=== PATIENT | female | born 1940 | race Caucasian/White ===

== ENCOUNTER → 2016-04-05 | Outpatient (CLI) | payer MEDICARE, BC, OTHER ==
[~2016-04-05] MED LIST: ISOVUE-370 76% 100ML VIAL (Q9967) As Ordered ONE
--- NOTE | 2016-04-05 21:04 | REP ---
CT ANGIO NECK: HISTORY: Carotid stenosis. CONTRAST: Isovue-370, 75 mL There is mild stenosis of 15% of the right internal carotid artery at its origin. There is mild stenosis of 15% of the right external carotid artery at its origin. There is mild stenosis of 20% of the left internal carotid artery at its origin. There is moderate stenosis of 30% of the left external carotid artery at its origin. Calcified atherosclerotic plaques are present in the cavernous internal carotid arteries. There is at least mild stenosis of the cavernous internal carotid artery. Calcified atherosclerotic plaques are present at the origins of the left subclavian and right subclavian arteries. There is no significant stenosis. The vertebral arteries are patent. The right vertebral artery is very hypoplastic. The left vertebral artery is dominant. IMPRESSION: 1. Mild stenosis of 15% of the right internal carotid artery at its origin. 2. Mild stenosis of 20% of the left internal carotid artery at its origin. Unreviewed
== END ==
LOC: M RAD 17:37
PROVIDERS: ATTEND Internal Medicine Cardiovascular Disease
DX: I77.1 Stricture of artery (principal)
CPT/HCPCS: 70498; Q9967

== ENCOUNTER → 2016-05-01 | Outpatient (CLI) | payer MEDICARE, BC, OTHER ==
--- NOTE | 2016-05-01 15:20 | REP ---
Clinical: Pain. Technique: AP, lateral, bilateral oblique and sunrise views of the left knee. Findings: Advanced tricompartmental osteoarthritic degenerative changes are appreciated. Findings include osteophytosis, subchondral sclerosis/heterogeneity and joint space narrowing as well as subtle chondrocalcinosis. No acute fracture or dislocation. Impression: Advanced tricompartmental osteoarthritic degenerative changes. Signed by Jadiel Goins MD 05/01/2016 03:11 P
== END ==
LOC: M WUC 14:40
PROVIDERS: ATTEND Nurse Practitioner Family
DX: M17.12 Unilateral primary osteoarthritis, left knee (principal)

== ENCOUNTER → 2016-06-25 | Outpatient (CLI) | payer MEDICARE, BC, OTHER ==
--- NOTE | 2016-06-25 08:49 | REP ---
URINARY TRACT SONOGRAPHY WITH BILATERAL RENAL DOPPLER ASSESSMENT : HISTORY: Chronic kidney disease stage III. FINDINGS: Scanning at the level of the urinary bladder shows incomplete bladder filling. Renal cortical echogenicity pattern is slightly increased essentially isoechoic with liver and spleen consistent with some degree of chronic medical renal disease. There is no evidence of hydronephrosis cyst or mass on either side. The kidneys are small bilaterally. Right renal dimensions are 8.8 x 4.4 x 4.1 cm. Left kidney measures 8.9 x 3.7 x 4.8 cm. RENAL DOPPLER FLOW ASSESSMENT: Peak systolic flow velocity in the abdominal aorta at the level of the main renal arteries is normal at 170.8 cm/s. Peak systolic flow velocity in the left main renal artery is 210 cm/s and that in the right main renal artery is recorded at 140 cm/s. Renal to aortic flow velocity ratios are therefore normal at 0.8 on the right and 1.2 on the left. Resistive indices and acceleration times are measured in the upper, mid and lower pole intralobar arteries bilaterally. Resistive indices are at the upper range of normal. Acceleration times are normal. IMPRESSION: 1. Bilaterally small somewhat atrophic kidneys. No hydronephrosis. 2. No renal Doppler evidence to suggest renal artery stenosis. Signed by Ang Weaver MD 06/25/2016 03:36 P
[2016-06-25 09:03] LABS: MEAN CORPUSCULAR HEMOGLOBIN 28.5 pg (27.0-33.0); MEAN CORPUSCULAR HGB CONC 33.1 g/dl (32.0-36.5); RED CELL DISTRIBUTION WIDTH 12.7 % (11.5-14.5); WHITE BLOOD COUNT 8.2 K/mm3 (4.0-10.0)
[2016-06-25 09:14] LABS: ALBUMIN 3.8 GM/DL (3.2-5.2); ANION GAP 8 MEQ/L (8-16); BLOOD UREA NITROGEN 15 MG/DL (7-18); CALCIUM LEVEL 9.3 MG/DL (8.8-10.2); CARBON DIOXIDE LEVEL 28 MEQ/L (21-32); CHLORIDE LEVEL 107 MEQ/L (98-107); CREATININE FOR GFR 0.95 MG/DL (0.55-1.02); GLOMERULAR FILTRATION RATE > 60.0 (>39); GLUCOSE, FASTING 101 MG/DL (83-110); PHOSPHORUS LEVEL 2.9 MG/DL (2.5-4.9); POTASSIUM SERUM 4.7 MEQ/L (3.5-5.1); SODIUM LEVEL 143 MEQ/L (136-145)
== END ==
LOC: M RAD 07:31
PROVIDERS: ATTEND Internal Medicine Nephrology
DX: N18.3 Chronic kidney disease, stage 3 (moderate) (principal); I12.9 Hypertensive chronic kidney disease with stage 1 through stage 4 chronic kidney disease, or unspecified chronic kidney disease; N25.81 Secondary hyperparathyroidism of renal origin

== ENCOUNTER → 2016-08-14 | Outpatient (REF) | payer MEDICARE, BC, OTHER ==
[2016-08-23 14:15] LABS: ALDOSTERONE 4.9 ng/dL (0.0-30.0)
== END ==
LOC: M LAB REF 13:07
PROVIDERS: ATTEND Internal Medicine Nephrology
DX: I15.0 Renovascular hypertension (principal)

== ENCOUNTER → 2016-09-04 | Outpatient (CLI) | payer MEDICARE, BC, OTHER ==
[2016-09-04 12:49] LABS: BASO # 0.1 K/mm3 (0.0-0.2); EOS # 0.4 K/mm3 (0.0-0.50); EOS % 4.9 % (0.0-3.0); LARGE UNSTAINED CELL # 0.2 K/mm3 (0.0-0.4); LARGE UNSTAINED CELL % 2.1 % (0.0-4.0); LYMPH # 2.1 K/mm3 (1.5-4.5); LYMPH % 23.9 % (24.0-44.0); MEAN CORPUSCULAR HEMOGLOBIN 28.8 pg (27.0-33.0); MEAN CORPUSCULAR HGB CONC 33.1 g/dl (32.0-36.5); MONO # 0.5 K/mm3 (0.0-0.8); MONO % 5.9 % (0.0-5.0); NEUTROPHILS # 5.3 K/mm3 (1.8-7.7); NEUTROPHILS % 62.1 % (36.0-66.0); PLATELET COUNT, AUTOMATED 321 k/mm3 (150-450); RED CELL DISTRIBUTION WIDTH 13.1 % (11.5-14.5); WHITE BLOOD COUNT 8.6 K/mm3 (4.0-10.0)
[2016-09-04 13:14] LABS: ALBUMIN 3.7 GM/DL (3.2-5.2); CALCIUM LEVEL 9.7 MG/DL (8.8-10.2); CREATININE FOR GFR 1.24 MG/DL (0.55-1.02); GLOMERULAR FILTRATION RATE 44.7 (>39); MAGNESIUM LEVEL 2.5 MG/DL (1.8-2.4); PHOSPHORUS LEVEL 2.6 MG/DL (2.5-4.9); POTASSIUM SERUM 4.3 MEQ/L (3.5-5.1); URIC ACID 6.9 MG/DL (2.6-6.0)
--- NOTE | 2016-09-04 13:39 | REP ---
MRI ABDOMEN WITHOUT CONTRAST: HISTORY: Attention kidneys. Resistant hypertension. TECHNIQUE: Axial and coronal T1- and T2-weighted scans include TRUE FISP, turbo spin-echo, spin-echo, 2D gradient echo, and in-and-out of phase images. FINDINGS: There is no evidence of hydronephrosis on either side. No intrarenal mass is seen. No perirenal or pararenal fluid collection is seen on either side. Right kidney measures approximately 8.9 cm in length and the left 9.3 cm. There is a 0.7 cm cyst in the left lobe of the liver. No other hepatic lesion is seen. No filling defect is noted in the gallbladder. No splenic lesion is seen. There is a small accessory splenule inferior to the spleen. No pancreatic abnormality is seen. No periaortic adenopathy or mass is seen. IMPRESSION: No significant renal or perirenal abnormality seen. Signed by Ang Weaver MD 09/04/2016 03:23 P
== END ==
LOC: M RAD 10:57 → M LAB 10:57
PROVIDERS: ATTEND Internal Medicine Nephrology
DX: N17.9 Acute kidney failure, unspecified (principal); N18.1 Chronic kidney disease, stage 1; I15.8 Other secondary hypertension

== ENCOUNTER → 2017-03-24 | Outpatient (CLI) | payer MEDICARE, BC, OTHER ==
[2017-03-24 10:46] LABS: HEMATOCRIT 34.5 % (36.0-47.0); HEMOGLOBIN 11.3 g/dl (12.0-16.0); MEAN CORPUSCULAR HEMOGLOBIN 28.7 pg (27.0-33.0); MEAN CORPUSCULAR HGB CONC 32.8 g/dl (32.0-36.5); MEAN CORPUSCULAR VOLUME 87.6 fl (80.0-96.0); PLATELET COUNT, AUTOMATED 267 10^3/uL (150-450); RED BLOOD COUNT 3.94 10^6/uL (4.00-5.40); RED CELL DISTRIBUTION WIDTH 13.7 % (11.5-14.5); WHITE BLOOD COUNT 6.5 10^3/uL (4.0-10.0)
[2017-03-24 11:14] LABS: ALBUMIN 3.8 GM/DL (3.2-5.2); ALBUMIN/GLOBULIN RATIO 0.93 (1.00-1.93); ALKALINE PHOSPHATASE 71 U/L (45-117); ALT/SGPT 17 U/L (12-78); ANION GAP 3 MEQ/L (8-16); AST/SGOT 17 U/L (7-37); BILIRUBIN,TOTAL 0.4 MG/DL (0.2-1.0); BLOOD UREA NITROGEN 21 MG/DL (7-18); CALCIUM LEVEL 9.7 MG/DL (8.8-10.2); CARBON DIOXIDE LEVEL 28 MEQ/L (21-32); CHLORIDE LEVEL 113 MEQ/L (98-107); CHOLESTEROL LEVEL 228 MG/DL (<200); CHOLESTEROL RISK RATIO 3.257 (<5); GLOMERULAR FILTRATION RATE 46.3 (>39); GLUCOSE, FASTING 106 MG/DL (83-110); HDL CHOLESTEROL 70 MG/DL (>40); LDL CHOLESTEROL 133.8 MG/DL (<100); NON-HDL-C 158 MG/DL; POTASSIUM SERUM 4.5 MEQ/L (3.5-5.1); SODIUM LEVEL 144 MEQ/L (136-145); TOTAL PROTEIN 7.9 GM/DL (6.4-8.2); TRIGLYCERIDES LEVEL 121 MG/DL (<150)
== END ==
LOC: M LAB 10:20
DX: E78.00 Pure hypercholesterolemia, unspecified (principal)
CPT/HCPCS: 80053

== ENCOUNTER → 2017-04-21 | Outpatient (REF) | payer MEDICARE, BC, OTHER ==
[2017-04-22 14:37] LABS: FOLATE 23.8 NG/ML; VITAMIN B12 LEVEL 958 PG/ML
[2017-04-22 14:39] LABS: FERRITIN 83 NG/ML (8-252); IRON (FE) 62 UG/DL (50-170); PERCENT SATURATION 21.8 % (13.2-45.0); TOTAL IRON BINDING CAPACITY 284 UG/DL (250-450)
== END ==
LOC: M LAB REF 04-22 14:01
DX: D64.9 Anemia, unspecified (principal)
CPT/HCPCS: 82746

== ENCOUNTER → 2017-06-30 | Outpatient (CLI) | payer MEDICARE, BC, OTHER ==
[2017-06-30 11:10] LABS: HEMATOCRIT 34.3 % (36.0-47.0); HEMOGLOBIN 11.4 g/dl (12.0-15.5); MEAN CORPUSCULAR HEMOGLOBIN 28.7 pg (27.0-33.0); MEAN CORPUSCULAR HGB CONC 33.2 g/dl (32.0-36.5); MEAN CORPUSCULAR VOLUME 86.4 fl (80.0-96.0); PLATELET COUNT, AUTOMATED 274 10^3/uL (150-450); RED BLOOD COUNT 3.97 10^6/uL (4.00-5.40); RED CELL DISTRIBUTION WIDTH 13.4 % (11.5-14.5); WHITE BLOOD COUNT 8.1 10^3/uL (4.0-10.0)
[2017-06-30 11:36] LABS: ALBUMIN 3.8 GM/DL (3.2-5.2); ALBUMIN/GLOBULIN RATIO 0.81 (1.00-1.93); ALKALINE PHOSPHATASE 80 U/L (45-117); ALT/SGPT 21 U/L (12-78); ANION GAP 4 MEQ/L (8-16); AST/SGOT 25 U/L (7-37); BILIRUBIN,TOTAL 0.4 MG/DL (0.2-1.0); BLOOD UREA NITROGEN 24 MG/DL (7-18); CALCIUM LEVEL 9.3 MG/DL (8.8-10.2); CARBON DIOXIDE LEVEL 27 MEQ/L (21-32); CHLORIDE LEVEL 110 MEQ/L (98-107); CHOLESTEROL LEVEL 211 MG/DL (<200); CHOLESTEROL RISK RATIO 3.149 (<5); CPK CREATINE PHOSPHOKINASE 57 U/L (26-192); CREATININE FOR GFR 1.27 MG/DL (0.55-1.30); GLOMERULAR FILTRATION RATE 43.3 (>39); GLUCOSE, FASTING 91 MG/DL (70-100); HDL CHOLESTEROL 67 MG/DL (>40); LDL CHOLESTEROL 113.2 MG/DL (<100); NON-HDL-C 144 MG/DL; POTASSIUM SERUM 4.6 MEQ/L (3.5-5.1); SODIUM LEVEL 141 MEQ/L (136-145); TOTAL PROTEIN 8.5 GM/DL (6.4-8.2); TRIGLYCERIDES LEVEL 154 MG/DL (<150)
== END ==
LOC: M LAB 10:16
DX: I10 Essential (primary) hypertension (principal); E78.00 Pure hypercholesterolemia, unspecified
CPT/HCPCS: 82550

== ENCOUNTER → 2017-10-13 | Outpatient (CLI) | payer MEDICARE, BC, OTHER ==
[2017-10-13 09:06] LABS: HEMATOCRIT 33.1 % (36.0-47.0); HEMOGLOBIN 10.8 g/dl (12.0-15.5); MEAN CORPUSCULAR HEMOGLOBIN 29.1 pg (27.0-33.0); MEAN CORPUSCULAR HGB CONC 32.6 g/dl (32.0-36.5); MEAN CORPUSCULAR VOLUME 89.2 fl (80.0-96.0); PLATELET COUNT, AUTOMATED 267 10^3/uL (150-450); RED BLOOD COUNT 3.71 10^6/uL (4.00-5.40); RED CELL DISTRIBUTION WIDTH 13.5 % (11.5-14.5); WHITE BLOOD COUNT 6.4 10^3/uL (4.0-10.0)
[2017-10-13 09:24] LABS: ALBUMIN 3.5 GM/DL (3.2-5.2); ALBUMIN/GLOBULIN RATIO 0.83 (1.00-1.93); ALKALINE PHOSPHATASE 70 U/L (45-117); ALT/SGPT 37 U/L (12-78); ANION GAP 8 MEQ/L (8-16); AST/SGOT 26 U/L (7-37); BILIRUBIN,TOTAL 0.4 MG/DL (0.2-1.0); BLOOD UREA NITROGEN 27 MG/DL (7-18); CALCIUM LEVEL 9.2 MG/DL (8.8-10.2); CARBON DIOXIDE LEVEL 24 MEQ/L (21-32); CHLORIDE LEVEL 114 MEQ/L (98-107); CHOLESTEROL LEVEL 196 MG/DL (<200); CHOLESTEROL RISK RATIO 3.161 (<5); CPK CREATINE PHOSPHOKINASE 41 U/L (26-192); CREATININE FOR GFR 1.34 MG/DL (0.55-1.30); GLOMERULAR FILTRATION RATE 40.7 (>39); GLUCOSE, FASTING 99 MG/DL (70-100); HDL CHOLESTEROL 62 MG/DL (>40); NON-HDL-C 134 MG/DL; POTASSIUM SERUM 4.6 MEQ/L (3.5-5.1); SODIUM LEVEL 146 MEQ/L (136-145); TOTAL PROTEIN 7.7 GM/DL (6.4-8.2); TRIGLYCERIDES LEVEL 110 MG/DL (<150)
[2017-10-13 09:53] LABS: TOTAL 25(OH) VITAMIN D 23.9 NG/ML (30.0-100.0)
== END ==
LOC: M LAB 08:27
DX: I10 Essential (primary) hypertension (principal); E78.00 Pure hypercholesterolemia, unspecified; E55.9 Vitamin D deficiency, unspecified
CPT/HCPCS: 82550

== ENCOUNTER → 2018-09-18 | Outpatient (CLI) | payer MEDICARE, BC, OTHER ==
[2018-09-18 10:17] LABS: BASO # 0.1 10^3/uL (0.0-0.2); BASO % 1.4 % (0.0-1.0); EOS # 0.9 10^3/uL (0.0-0.50); EOS % 10.6 % (0.0-3.0); HEMATOCRIT 34.3 % (36.0-47.0); HEMOGLOBIN 11.2 g/dl (12.0-15.5); LYMPH # 2.3 10^3/uL (1.5-4.5); LYMPH % 27.9 % (24.0-44.0); MEAN CORPUSCULAR HEMOGLOBIN 28.4 pg (27.0-33.0); MEAN CORPUSCULAR HGB CONC 32.7 g/dl (32.0-36.5); MEAN CORPUSCULAR VOLUME 87.1 fl (80.0-96.0); MONO # 0.7 10^3/uL (0.0-0.8); MONO % 8.9 % (0.0-5.0); NEUTROPHILS # 4.2 10^3/uL (1.8-7.7); NEUTROPHILS % 51.1 % (36.0-66.0); PLATELET COUNT, AUTOMATED 312 10^3/uL (150-450); RED BLOOD COUNT 3.94 10^6/uL (4.00-5.40); WHITE BLOOD COUNT 8.1 10^3/uL (4.0-10.0)
[2018-09-18 10:51] LABS: ALBUMIN 3.6 GM/DL (3.2-5.2); BILIRUBIN,TOTAL 0.4 MG/DL (0.2-1.0); CALCIUM LEVEL 9.6 MG/DL (8.8-10.2); CHOLESTEROL RISK RATIO 3.4 (<5); CREATININE FOR GFR 1.31 MG/DL (0.55-1.30); FREE T4 1.09 NG/DL (0.76-1.46); GLOMERULAR FILTRATION RATE 41.7 (>39); POTASSIUM SERUM 4.7 MEQ/L (3.5-5.1); THYROID STIMULATING HORMONE 1.21 uIU/ML (0.358-3.740); TOTAL PROTEIN 8.2 GM/DL (6.4-8.2)
[2018-09-18 11:23] LABS: TOTAL 25(OH) VITAMIN D 26.6 NG/ML (30.0-100.0)
== END ==
LOC: M LAB 09:39
PROVIDERS: ATTEND Physician Assistant Medical
DX: R53.83 Other fatigue (principal); I10 Essential (primary) hypertension; E78.2 Mixed hyperlipidemia; E55.9 Vitamin D deficiency, unspecified

== ENCOUNTER → 2020-09-06 | Outpatient (CLI) | payer MEDICARE, BC, OTHER ==
[2020-09-06 10:33] LABS: BASO # 0.1 10^3/uL (0.0-0.2); BASO % 1.1 % (0.0-1.0); EOS # 0.3 10^3/uL (0.0-0.5); EOS % 3.8 % (0.0-3.0); HEMATOCRIT 34.2 % (36.0-47.0); HEMOGLOBIN 10.8 g/dl (12.0-15.5); LYMPH # 1.5 10^3/uL (1.5-5.0); MEAN CORPUSCULAR HEMOGLOBIN 28.9 pg (27.0-33.0); MEAN CORPUSCULAR HGB CONC 31.6 g/dl (32.0-36.5); MEAN CORPUSCULAR VOLUME 91.4 fl (80.0-96.0); MONO # 0.8 10^3/uL (0.0-0.8); MONO % 9.4 % (2.0-8.0); NEUTROPHILS # 5.4 10^3/uL (1.5-8.5); NEUTROPHILS % 66.5 % (36.0-66.0); PLATELET COUNT, AUTOMATED 265 10^3/uL (150-450); RED BLOOD COUNT 3.74 10^6/uL (4.00-5.40); WHITE BLOOD COUNT 8.1 10^3/uL (4.0-10.0)
[2020-09-06 11:11] LABS: ALBUMIN 3.5 GM/DL (3.2-5.2); BILIRUBIN,TOTAL 0.4 MG/DL (0.2-1.0); CALCIUM LEVEL 9.6 MG/DL (8.8-10.2); CHOLESTEROL RISK RATIO 3.428 (<5); CREATININE FOR GFR 1.45 MG/DL (0.55-1.30); GLOMERULAR FILTRATION RATE 36.9 (>32); POTASSIUM SERUM 5.2 MEQ/L (3.5-5.1); TOTAL PROTEIN 7.3 GM/DL (6.4-8.2)
[2020-09-06 11:12] LABS: FREE T4 1.2 NG/DL (0.76-1.46); THYROID STIMULATING HORMONE 1.02 uIU/ML (0.358-3.740)
== END ==
LOC: M LAB 09:24
PROVIDERS: ATTEND Physician Assistant Medical
DX: R53.83 Other fatigue (principal); Z79.899 Other long term (current) drug therapy

== ENCOUNTER 2021-07-04 06:49 | Emergency (ER) | payer MEDICARE, BC, OTHER ==
[~2021-07-04] VITALS: Ht 162.6 cm; Wt 52.3 kg
[2021-07-04] MEDS ORDERED: NS 500 ML IV ONE (07:25)
[2021-07-04 08:07] LABS: VENOUS BASE EXCESS -4.9 (-2.0-2.0); VENOUS HCO3 19.3 MEQ/L (23.0-27.0); VENOUS O2 SATURATION 91.1 % (60.0-80.0); VENOUS PARTIAL PRESSURE CO2 33.1 mmHg (38.0-50.0); VENOUS PARTIAL PRESSURE O2 56.8 mmHg (30.0-50.0); VENOUS PH 7.384 UNITS (7.330-7.430); VENOUS STANDARD HCO3 20.3 MEQ/L; VENOUS TOTAL CO2 20.3 MEQ/L (24.0-28.0)
[2021-07-04 08:14] LABS: BASO % 0.1 % (0.0-1.0); HEMATOCRIT 34.9 % (36.0-47.0); HEMOGLOBIN 11.6 g/dl (12.0-15.5); LYMPH # 1.1 10^3/uL (1.5-5.0); LYMPH % 9.5 % (24.0-44.0); MEAN CORPUSCULAR HEMOGLOBIN 29.1 pg (27.0-33.0); MEAN CORPUSCULAR HGB CONC 33.2 g/dl (32.0-36.5); MEAN CORPUSCULAR VOLUME 87.7 fl (80.0-96.0); MONO # 0.7 10^3/uL (0.0-0.8); MONO % 5.7 % (2.0-8.0); NEUTROPHILS # 9.5 10^3/uL (1.5-8.5); NEUTROPHILS % 84.3 % (36.0-66.0); PLATELET COUNT, AUTOMATED 205 10^3/uL (150-450); RED BLOOD COUNT 3.98 10^6/uL (4.00-5.40); WHITE BLOOD COUNT 11.3 10^3/uL (4.0-10.0)
[2021-07-04 08:37] LABS: CK-MB VALUE MASS 19.9 NG/ML (<3.6); MB/CK RELATIVE INDEX 7.9 (< OR =4)
[2021-07-04 08:41] LABS: ALBUMIN 3.8 GM/DL (3.2-5.2); ALT/SGPT 34 U/L (12-78); BILIRUBIN,DIRECT 0.3 MG/DL (0.0-0.2); BILIRUBIN,TOTAL 0.7 MG/DL (0.2-1.0); BLOOD UREA NITROGEN 28 MG/DL (7-18); CALCIUM LEVEL 10.2 MG/DL (8.8-10.2); CARBON DIOXIDE LEVEL 22 MEQ/L (21-32); CHLORIDE LEVEL 108 MEQ/L (98-107); CREATININE FOR GFR 1.23 MG/DL (0.55-1.30); ETHYL ALCOHOL (ETHANOL) < 0.003 % (0.000-0.010); GLOMERULAR FILTRATION RATE 44.5 (>32); GLUCOSE, FASTING 107 MG/DL (70-100); POTASSIUM SERUM 4.1 MEQ/L (3.5-5.1); SODIUM LEVEL 141 MEQ/L (136-145); THYROID STIMULATING HORMONE 0.332 uIU/ML (0.358-3.740); TOTAL PROTEIN 8.2 GM/DL (6.4-8.2)
[2021-07-04 08:45] LABS: OSMOLALITY SERUM 299 MOSM/KG (280-301)
[2021-07-04 08:54] LABS: AMPHETAMINES LEVEL URINE NEGATIVE (NEGATIVE); BARBITURATES URINE NEGATIVE (NEGATIVE); BENZODIAZEPINES URINE NEGATIVE (NEGATIVE); CANNABINOIDS URINE NEGATIVE (NEGATIVE); COCAINE METABOLITE URINE NEGATIVE (NEGATIVE); METHADONE URINE NEGATIVE (NEGATIVE); OPIATES URINE NEGATIVE (NEGATIVE); PHENCYCLIDINE URINE NEGATIVE (NEGATIVE)
[2021-07-04] MEDS ORDERED: ASPIRIN 81 MG CHEW TABLET PO ONE (08:55)
[2021-07-04] MEDS: METOPROLOL 5 MG/5 ML VIAL IV SCH ×3 (09:06→09:20)
[2021-07-04 09:12] LABS: NT-PRO BNP 13490 PG/ML (<450)
[2021-07-04 09:26] LABS: INR 1.11; PARTIAL THROMBOPLASTIN TIME 27.4 SECONDS (25.9-37.0); PROTHROMBIN TIME 14.7 SECONDS (12.7-14.5)
[2021-07-04] MEDS ORDERED: bisoproloL fumarate 5 MG TAB PO ONE (09:40)
[2021-07-04] MEDS ORDERED: DIGOXIN INJ 0.5 MG/2 ML AMP (J1160) IV STA (09:40)
[2021-07-04 09:42] LABS: FREE T4 1.17 NG/DL (0.76-1.46)
[2021-07-04 09:42] LABS: CK-MB VALUE MASS 24.3 NG/ML (<3.6); MB/CK RELATIVE INDEX 8.71 (< OR =4)
[2021-07-04 10:04] VITALS: BP 127/58
[2021-07-04] MEDS ORDERED: HEPARIN SOD (PORCINE) 5000UNITS/ML 1ML VIAL/SYRINGE IV ONE (10:05)
[2021-07-04] MEDS ORDERED: HEPARIN DRIP 25,000 UNITS in IV 1 EA IV SCH (10:05)
[2021-07-04 11:43] LABS: RSV AMPLIFICATION NEGATIVE (NEGATIVE)
[2021-07-04 15:15] VITALS: BP 156/68
== END 2021-07-04 15:20 | disposition short-term general hospital (02) ==
LOC: M ED 06:49
DX: I21.4 Non-ST elevation (NSTEMI) myocardial infarction (principal); I48.91 Unspecified atrial fibrillation; R94.31 Abnormal electrocardiogram [ECG] [EKG]; I10 Essential (primary) hypertension
CPT/HCPCS: 51701; 70450; 71045; 80047; 80048; 80076; 80307; 81001; 82077; 82140; 82550; 82553; 82803; 83605; 83880; 83930; 84439; 84443; 84484; 85025; 85610; 85730; 87040; 87631; 93005; 93041; 93306; 94760; 96365; 96366; 96375; 99285; J1160; J1644